=== PATIENT | male | born 2000 | race Asian ===

== ENCOUNTER 2025-05-05 00:02 | Emergency (ER) | payer BC ==
[~2025-05-05] VITALS: Ht 175.3 cm; Wt 73.2 kg
--- NOTE | 2025-05-05 00:34 | RADIOLOGY REPORT ---
CHEST RADIOGRAPH Indication: SOB Technique: Single frontal view of the chest was obtained COMPARISON: None FINDINGS: Lines and Tubes: None Lungs: Clear Pleura: No effusion. No pneumothorax. Cardiomediastinal contours: Unremarkable Bones: Unremarkable IMPRESSION: 1. No acute disease.
--- NOTE | 2025-05-05 00:58 | Physician Documentation ---
History of Present Illness ~ Chief Complaint: General Stated Complaint: SOB Time Seen by MD: 00:36 Source: patient Mode of Arrival: POV Exam Limitations: no limitations HPI Chief Complaint: Shortness a breath Caveat: None Independent Historians: None History of Present Illness: Patient is a 24-year-old man who comes in complain ing of shortness of breath that began around 4:00 p.m. yesterday. Patient denies any cough or fever. Patient denies any chest pain. Patient states he does not have any history of asthma. Patient states he does not smoke. Patient denies having any anxiety. Patient states that it feels like he is unable to take a deep breath. Review of systems: All systems were reviewed and are negative except for what is indicated in the history of present illness. Past Medical History: None Past Surgical History: None Social History: No tobacco use, no alcohol use, no drug use Medications: Reviewed as documented Nursing Notes Allergies: Reviewed as documented in Nursing Notes Medication Reconciliation Allergies: Coded Allergies: No Known Allergies (Unverified , 05/05/25) Review of Systems All Other Systems at this time: Reviewed and Negative ROS Patient denies any other acute symptoms other than above. All other systems are negative Physical Exam Vital Signs: RN Vital Signs have been reviewed: Yes, Temperature: 98.4, Source: Temporal, Heart Rate: 85, Respiratory Rate: 16, BP: 115/73, Pulse Oximetry: 100, Weight: 73.200 Oxygen Flow Rate: 0 Pulse Oximetry Reflects: adequate oxygenation Physical Exam General Appearance: No distress HEENT: Normal OP, moist oral mucosa, PERRL, EOMI Neck: supple, normal ROM, trachea midline Pulmonary: No respiratory distress, CTA, BS equal Cardiac: RRR, no murmur, rub or gallop, GI: nondistended, soft, nontender, normal bowel sounds, no guarding, no rebound Extremities: normal ROM, no swelling, non-tender, calves are soft and nontender Skin: intact, dry, warm, no rashes Neuro: AAOx3, speech is clear, no focal motor weakness Psych: normal affect, good eye contact, no apparent hallucination, normal speech Progress Results/Orders Results/Orders Orders - NIHARIKA BELLO MD Chest,Single View (05/05/25 00:23) Completed Orders - NIHARIKA BELLO MD Chest,Single View (05/05/25 00:23) Vital Signs 05/05/25 00:08 Temp 98.4 Pulse 85 Resp 16 B/P (MAP) 115/73 Pulse Ox 100 O2 Flow Rate 0 Medical Decision Making Findings Differential diagnosis includes but is not limited to: Pneumonia, pulmonary embolus, pneumothorax, exposure to allergen, asthma Chest x-ray, single view, indication: Shortness a breath Independent interpretation: Lungs are clear, normal mediastinum, normal cardiac silhouette. No acute cardiopulmonary process Emergency department course/medical decision-making: Patient has subjective complaints of shortness of breath. Patient's pulmonary exam is normal. Patient does not appear to be in any respiratory distress. Chest x-ray is normal. Patient does not appear to be anxious. Patient was asked if he was exposed to any oral sores or allergens that may have caused him to feel like he can not take a deep breath and he states that he was not. Patient is stable for discharge. There was no evidence of a medical or surgical emergency. Cause for his symptoms is unknown. Departure Time of Disposition: 00:58 Disposition: 01 HOME / SELF CARE / HOMELESS Impression: Primary Impression: Dyspnea Qualified Codes: R06.00 - Dyspnea, unspecified Condition: Stable Discharge Instructions: Shortness of Breath, Adult, [id number] Additional Instructions: NO CAUSE FOR YOUR SHORTNESS BREATH HAS BEEN IDENTIFIED. YOUR CHEST X-RAY IS NORMAL. YOUR PULMONARY EXAM IS NORMAL. IF SYMPTOMS PERSIST YOU MAY FOLLOW UP WITH YOUR PRIMARY CARE DOCTOR. Education Educated: Patient Educated regarding: diagnosis, treatment, need for follow up Signature Scribe Signature: NO SCRIBE Attestation: NO SCRIBE NIHARIKA BELLO MD May 05, 2025 00:58
[2025-05-05 01:17] VITALS: BP 116/72; PULSE 84; RESP 16; TEMP 98.6; O2SAT 99
== END 2025-05-05 01:19 | disposition home or self-care (01) ==
LOC: ER 00:04
DX: R06.02 Shortness of breath (principal)
CPT/HCPCS: 71045; 99283